=== PATIENT | male | born 1970 | race Caucasian/White ===

== ENCOUNTER 2022-01-02 16:02 | Emergency (ER) | payer MEDICAID, OTHER ==
[~2022-01-02] VITALS: Ht 180.3 cm; Wt 125.0 kg
[2022-01-02 16:11] VITALS: BP 163/109
== END 2022-01-02 17:20 | disposition home or self-care (01) ==
LOC: ER 16:03
DX: Z48.00 Encounter for change or removal of nonsurgical wound dressing (principal)
CPT/HCPCS: 99281